=== PATIENT | female | born 1985 | race Caucasian/White ===

== ENCOUNTER 2020-11-26 00:47 | Emergency (ER) | payer MEDICARE, OTHER ==
[2020-11-26 00:58] VITALS: BP 133/62; PULSE 96; RESP 18; TEMP 98.2
[2020-11-26 02:06] LABS: Bacteria,Urine Rare /hpf; Mucus,Urine Rare /hpf; RBC,Urine 1 /hpf (0-5); Squamous Epithelial Cell,Urine 1 /hpf (0-4); WBC,Urine 12 /hpf (0-5)
[2020-11-26 02:08] LABS: Appearance,Urine Clear (Clear); Color,Urine Dark Orange
[2020-11-26 02:09] LABS: Basophils # (A) 0.1 k/uL (0-0.2); Basophils % (A) 1 %; Eosinophils # (A) 0.3 k/uL (0-0.7); Eosinophils % (A) 3 %; Lymphocytes # (A) 3.4 k/uL (1.0-4.8); Lymphocytes % (A) 34 %; MCH 32.1 pg (25.0-35.0); MCHC 34.1 g/dL (31.0-37.0); MCV 94.1 fL (80.0-100.0); Monocytes # (A) 0.6 k/uL (0-1.0); Monocytes % (A) 6 %; Neutrophils # (A) 5.6 k/uL (1.3-7.7); Neutrophils % (A) 56 %; Platelet Count 355 k/uL (150-450); RBC 4.36 m/uL (3.80-5.40); RDW 12.2 % (11.5-15.5); WBC 10.1 k/uL (3.8-10.6)
[2020-11-26 02:16] LABS: ALT 26 U/L (4-34); AST 34 U/L (14-36); African American GFR (CKD) >90 (>60 ml/min/1.73 sqM); Albumin 4.2 g/dL (3.5-5.0); Alkaline Phosphatase 91 U/L (38-126); Amylase 38 U/L (30-110); Anion Gap 11 mmol/L; Blood Urea Nitrogen 13 mg/dL (7-17); Calcium 9.6 mg/dL (8.4-10.2); Carbon Dioxide 25 mmol/L (22-30); Chloride 103 mmol/L (98-107); Glucose 110 mg/dL (74-99); Lipase 63 U/L (23-300); Non-African American GFR(CKD) >90 (>60 ml/min/1.73 sqM); Potassium 4.2 mmol/L (3.5-5.1); Sodium 139 mmol/L (137-145); Total Bilirubin 0.1 mg/dL (0.2-1.3); Total Protein 6.8 g/dL (6.3-8.2)
[2020-11-26] MEDS ORDERED: SULFAMETHOX-TMP 800-160MG 1 EACH TAB PO STA (02:56)
--- NOTE | 2020-11-26 02:58 | ED ---
Abdominal Pain HPI - General Chief Complaint: Abdominal Pain Stated Complaint: Abd Pain Time Seen by Provider: 11/26/20 01:02 Source: patient Mode of arrival: ambulatory Limitations: no limitations - History of Present Illness MD Complaint: abdominal pain Onset/Timin -: days(s) Location: LLQ, RLQ, suprapubic Radiation: none Severity: moderate Quality: burning Consistency: intermittent Improves With: nothing Worsens With: other (Urination) Associated Symptoms: dysuria - Related Data LMP (females 10-50): last week Home Medications Medication Instructions Recorded Confirmed Albuterol Inhaler (Mhu) [Ventolin 2 puff INHALATION Q4HR PRN 10/21/13 10/25/13 Hfa Inhaler (Mhu)] Albuterol Nebulized [Ventolin 1 applic INHALATION Q4-6H PRN 10/21/13 10/25/13 Nebulized] Beclomethasone Dipropionate [Qvar 1 puff INHALATION BID PRN 10/21/13 10/25/13 40 mcg/puff] Cetirizine HCl [Zyrtec Chewable] 10 mg PO DAILY 10/21/13 10/25/13 DULoxetine HCL [Cymbalta] 60 mg PO HS 10/21/13 10/25/13 Dextroamphetamine/Amphetamine 20 mg PO TID 10/21/13 10/25/13 [Adderall] Ibuprofen [Motrin] 600 - 800 mg PO Q6HR PRN 10/21/13 10/25/13 Levothyroxine Sodium [Synthroid] 25 mcg PO DAILY 10/21/13 10/25/13 busPIRone HCL [Buspar] 15 mg PO BID 10/21/13 10/25/13 fentaNYL 25MCG/HR PATCH [Duragesic 25 mcg TRANSDERM Q72H 10/21/13 10/25/13 25MCG/HR] hydrOXYzine pamoate [Vistaril] 25 mg PO Q6H PRN 10/21/13 10/25/13 lamoTRIgine [LaMICtal] 100 mg PO HS 10/21/13 10/25/13 Previous Rx's Medication Instructions Recorded Warfarin [Coumadin] 2.5 mg PO DAILY #60 tab 10/28/13 Nicotine 21Mg/24Hr Patch [Habitrol] 1 patch TRANSDERM DAILY #14 patch 10/29/13 hydrOXYzine pamoate [Vistaril] 25 mg PO Q4HR PRN #120 cap 10/29/13 methocarbamoL [Robaxin] 1,000 mg PO QID PRN #120 tab 10/29/13 oxyCODONE-APAP 10-325MG [Percocet 2 each PO Q6H PRN #120 tab 10/29/13 10-325 mg] Phenazopyridine [Pyridium] 100 mg PO TID #6 tablet 11/26/20 Sulfamethox-Tmp 800-160Mg [Bactrim 1 each PO Q12HR #6 tab 11/26/20 Ds] Allergies Allergy/AdvReac Type Severity Reaction Status Date / Time latex Allergy Rash/Hives Verified 11/26/20 00:56 morphine Allergy Vomiting Verified 11/26/20 00:56 clarithromycin [From Biaxin] AdvReac Abdominal Verified 11/26/20 00:56 Pain Review of Systems ROS Statement: Those systems with pertinent positive or pertinent negative responses have been documented in the HPI. ROS Other: All systems not noted in ROS Statement are negative. Constitutional: Denies: fever, chills Respiratory: Denies: cough, dyspnea Cardiovascular: Denies: chest pain, palpitations, edema Gastrointestinal: Reports: abdominal pain. Denies: nausea, vomiting, diarrhea, constipation Genitourinary: Reports: urgency, dysuria, frequency. Denies: hematuria, discharge, abnormal menses Musculoskeletal: Denies: back pain Skin: Denies: rash Past Medical History Past Medical History: Asthma, Cancer, GERD/Reflux, GI Bleed, Hyperlipidemia, Liver Disease, Musculoskeletal Disorder, Osteoarthritis (OA), Skin Disorder, Syncope Additional Past Medical History / Comment(s): HX SKIN CANCER. 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 HX ORAL SURGERY. STATES HAS HIGH PAIN MED TOLERANCE. Past Anesthesia/Blood Transfusion Reactions: No Reported Reaction Additional Past Anesthesia/Blood Transfusion Reaction / Comment(s): FATHER HAS PROB AWAKENING FROM ANESTHESIA, GETS AGITATED; HE ALSO HAD A FEVER FROM A PAST BLOOD TRANSFUSION. Past Psychological History: Anxiety, Depression Smoking Status: Current every day smoker Past Alcohol Use History: None Reported, Rare Past Drug Use History: None Reported - Past Family History Father Family Medical History: Cancer, Deep Vein Thrombosis (DVT) General Exam Limitations: no limitations General appearance: alert, in no apparent distress Head exam: Present: atraumatic, normocephalic Eye exam: Present: normal appearance. Absent: scleral icterus, conjunctival injection Respiratory exam: Present: normal lung sounds bilaterally. Absent: respiratory distress, wheezes, rales, rhonchi, stridor Cardiovascular Exam: Present: regular rate, normal rhythm, normal heart sounds. Absent: systolic murmur, diastolic murmur, rubs, gallop GI/Abdominal exam: Present: soft, tenderness (Mild tenderness suprapubic area, no rebound or guarding.). Absent: distended, guarding, rebound, rigid, mass, pulsatile mass, hernia Extremities exam: Present: normal inspection, normal capillary refill Back exam: Present: normal inspection. Absent: CVA tenderness (R), CVA t enderness (L) Neurological exam: Present: alert Skin exam: Present: warm, dry, intact, normal color. Absent: rash Course Vital Signs 11/26/20 00:56 Temperature 98.2 F Pulse Rate 96 Respiratory 18 Rate Blood Pressure 133/62 O2 Sat by Pulse 99 Oximetry Medical Decision Making - Medical Decision Making Discussed with patient that if she is not having any relief with treatment, or if there is any worsening, she must return for further evaluation. She is not having improvement within 2 days she is follow with gynecology further evaluation. - Lab Data Result diagrams: 11/26/20 01:22 11/26/20 01:22 Lab Results 11/26/20 11/26/20 11/26/20 Range/Units 01:22 01:22 01:22 WBC 10.1 (3.8-10.6) k/uL RBC 4.36 (3.80-5.40) m/uL Hgb 14.0 (11.4-16.0) gm/dL Hct 41.0 (34.0-46.0) % MCV 94.1 (80.0-100.0) fL MCH 32.1 (25.0-35.0) pg MCHC 34.1 (31.0-37.0) g/dL RDW 12.2 (11.5-15.5) % Plt Count 355 (150-450) k/uL MPV 8.0 Neutrophils % 56 % Lymphocytes % 34 % Monocytes % 6 % Eosinophils % 3 % Basophils % 1 % Neutrophils # 5.6 (1.3-7.7) k/uL Lymphocytes # 3.4 (1.0-4.8) k/uL Monocytes # 0.6 (0-1.0) k/uL Eosinophils # 0.3 (0-0.7) k/uL Basophils # 0.1 (0-0.2) k/uL Sodium (137-145) mmol/L Potassium (3.5-5.1) mmol/L Chloride (98-107) mmol/L Carbon Dioxide (22-30) mmol/L Anion Gap mmol/L BUN (7-17) mg/dL Creatinine (0.52-1.04) mg/dL Est GFR (CKD-EPI)AfAm (>60 ml/min/1.73 sqM) Est GFR (CKD-EPI)NonAf (>60 ml/min/1.73 sqM) Glucose (74-99) mg/dL Calcium (8.4-10.2) mg/dL Total Bilirubin (0.2-1.3) mg/dL AST (14-36) U/L ALT (4-34) U/L Alkaline Phosphatase (38-126) U/L Total Protein (6.3-8.2) g/dL Albumin (3.5-5.0) g/dL Amylase (30-110) U/L Lipase (23-300) U/L Urine Color Dark [place] Urine Appearance Clear (Clear) Urine RBC 1 (0-5) /hpf Urine WBC 12 H (0-5) /hpf Urine WBC Clumps Rare H (None) /hpf Ur Squamous Epith Cells 1 (0-4) /hpf Urine Bacteria Rare H (None) /hpf Urine Mucus Rare H (None) /hpf Urine HCG, Qual Not Detected (Not Detectd) 11/26/20 Range/Units 01:22 WBC (3.8-10.6) k/uL RBC (3.80-5.40) m/uL Hgb (11.4-16.0) gm/dL Hct (34.0-46.0) % MCV (80.0-100.0) fL MCH (25.0-35.0) pg MCHC (31.0-37.0) g/dL RDW (11.5-15.5) % Plt Count (150-450) k/uL MPV Neutrophils % % Lymphocytes % % Monocytes % % Eosinophils % % Basophils % % Neutrophils # (1.3-7.7) k/uL Lymphocytes # (1.0-4.8) k/uL Monocytes # (0-1.0) k/uL Eosinophils # (0-0.7) k/uL Basophils # (0-0.2) k/uL Sodium 139 (137-145) mmol/L Potassium 4.2 (3.5-5.1) mmol/L Chloride 103 (98-107) mmol/L Carbon Dioxide 25 (22-30) mmol/L Anion Gap 11 mmol/L BUN 13 (7-17) mg/dL Creatinine 0.68 (0.52-1.04) mg/dL Est GFR (CKD-EPI)AfAm >90 (>60 ml/min/1.73 sqM) Est GFR (CKD-EPI)NonAf >90 (>60 ml/min/1.73 sqM) Glucose 110 H (74-99) mg/dL Calcium 9.6 (8.4-10.2) mg/dL Total Bilirubin 0.1 L (0.2-1.3) mg/dL AST 34 (14-36) U/L ALT 26 (4-34) U/L Alkaline Phosphatase 91 (38-126) U/L Total Protein 6.8 (6.3-8.2) g/dL Albumin 4.2 (3.5-5.0) g/dL Amylase 38 (30-110) U/L Lipase 63 (23-300) U/L Urine Color Urine Appearance (Clear) Urine RBC (0-5) /hpf Urine WBC (0-5) /hpf Urine WBC Clumps (None) /hpf Ur Squamous Epith Cells (0-4) /hpf Urine Bacteria (None) /hpf Urine Mucus (None) /hpf Urine HCG, Qual (Not Detectd) Disposition Clinical Impression: Urinary tract infection Disposition: HOME SELF-CARE Condition: Good Instructions (If sedation given, give patient instructions): Urinary Tract Infection in Women (ED) Prescriptions: Sulfamethox-Tmp 800-160Mg [Bactrim Ds] 1 each PO Q12HR #6 tab Phenazopyridine [Pyridium] 100 mg PO TID #6 tablet Is patient prescribed a controlled substance at d/c from ED?: No Referrals: None,Stated [Primary Care Provider] - 1-2 days
[2020-11-26] MEDS ORDERED: PHENAZOPYRIDINE 100 MG TAB PO ONE (03:00)
== END 2020-11-26 03:13 | disposition home or self-care (01) ==
LOC: EC 00:47
DX: N39.0 Urinary tract infection, site not specified (principal); F17.200 Nicotine dependence, unspecified, uncomplicated; J45.909 Unspecified asthma, uncomplicated; Z91.040 Latex allergy status; Z88.5 Allergy status to narcotic agent; Z88.8 Allergy status to other drugs, medicaments and biological substances
CPT/HCPCS: 36415; 80053; 81001; 81025; 82150; 83690; 85025; 87086; 99284

== ENCOUNTER → 2022-04-07 | Outpatient (CLI) | payer MEDICARE, OTHER ==
--- NOTE | 2022-04-07 19:18 | US ---
EXAMINATION TYPE: US transvaginal DATE OF EXAM: 04/07/2022 COMPARISON: CT 07/27/2013 CLINICAL HISTORY: N92.0 MENORRHAGIA. Pt states vaginal bleeding x 1 month TECHNIQUE: Transvaginal (TV). Transvaginal sonographic images of the pelvis were acquired. Date of LMP: 03/03/2022 EXAM MEASUREMENTS: Uterus: 6.5 x 4.2 x 4.7 cm Endometrial Stripe: 0.6 cm Right Ovary: 3.3 x 3.2 x 2.1 cm Left Ovary: 3.0 x 2.3 x 1.6 cm 1. Uterus: Retroverted Small Nabothian cyst, otherwise appeared wnl 2. Endometrium: wnl 3. Right Ovary: Dominant follicular Cyst= 2.4 x 1.5 x 2.3 cm 4. Left Ovary: Follicles 5. Bilateral Adnexa: small amount of fluid right adnexa adjacent to right ovary 6. Posterior cul-de-sac: small amount of free fluid IMPRESSION: 1. No acute pelvic process. Normal endometrial thickness. 2. Small amount of free fluid in the pelvic cul-de-sac and right adnexa, likely physiologic.
== END | disposition home or self-care (01) ==
LOC: RADUSWWP 15:28
PROVIDERS: ATTEND Internal Medicine Geriatric Medicine
DX: N92.0 Excessive and frequent menstruation with regular cycle (principal)
CPT/HCPCS: 76830

== ENCOUNTER 2022-05-15 15:28 | Emergency (ER) | payer MEDICARE, OTHER ==
[2022-05-15 15:45] VITALS: TEMP 97.8
[2022-05-15 16:53] LABS: Basophils # (A) 0.1 k/uL (0-0.2); Basophils % (A) 1 %; Eosinophils # (A) 0.4 k/uL (0-0.7); Eosinophils % (A) 4 %; HCT 40.1 % (34.0-46.0); HGB 13.6 gm/dL (11.4-16.0); Lymphocytes # (A) 3.2 k/uL (1.0-4.8); Lymphocytes % (A) 40 %; MCH 31.7 pg (25.0-35.0); MCV 93.4 fL (80.0-100.0); Mean Platelet Volume 7.7; Monocytes # (A) 0.5 k/uL (0-1.0); Monocytes % (A) 7 %; Neutrophils # (A) 3.6 k/uL (1.3-7.7); Neutrophils % (A) 45 %; Platelet Count 296 k/uL (150-450); RBC 4.29 m/uL (3.80-5.40); RDW 12.8 % (11.5-15.5)
[2022-05-15 17:03] LABS: ALT 19 U/L (4-34); AST 25 U/L (14-36); African American GFR (CKD) >90 (>60 ml/min/1.73 sqM); Albumin 4.3 g/dL (3.5-5.0); Alkaline Phosphatase 68 U/L (38-126); Anion Gap 5 mmol/L; Blood Urea Nitrogen 13 mg/dL (7-17); Calcium 9.1 mg/dL (8.4-10.2); Carbon Dioxide 25 mmol/L (22-30); Chloride 107 mmol/L (98-107); Glucose 93 mg/dL (74-99); Magnesium 2.2 mg/dL (1.6-2.3); Non-African American GFR(CKD) >90 (>60 ml/min/1.73 sqM); Potassium 4.2 mmol/L (3.5-5.1); Sodium 137 mmol/L (137-145); Total Bilirubin 0.2 mg/dL (0.2-1.3); Total Protein 6.8 g/dL (6.3-8.2)
[2022-05-15 17:11] LABS: Partial Thromboplastin Time 28.6 sec (22.0-30.0); Prothrombin Time 10.8 sec (9.0-12.0)
--- NOTE | 2022-05-15 17:14 | XR ---
EXAMINATION TYPE: XR chest 2V DATE OF EXAM: 05/15/2022 5:10 PM COMPARISON: None TECHNIQUE: XR chest 2V Frontal and lateral views of the chest. CLINICAL INDICATION:Female, 37 years old with history of Chest Pain; FINDINGS: Lungs/Pleura: There is no evidence of pleural effusion, focal consolidation, or pneumothorax. Pulmonary vascularity: Unremarkable. Heart/mediastinum: Cardiomediastinal silhouette is unremarkable. Musculoskeletal: No acute osseous pathology. IMPRESSION: No acute cardiopulmonary disease/process.
[2022-05-15 18:12] VITALS: RESP 18
--- NOTE | 2022-05-15 18:37 | ED ---
General Adult HPI - General Chief complaint: Chest Pain Stated complaint: Chest Pain,SOB Time Seen by Provider: 05/15/22 17:50 Source: patient Mode of arrival: ambulatory Limitations: no limitations - History of Present Illness Initial comments: Dictation was produced using [employer] dictation software. please excuse any grammatical, word or spelling errors. Chief Complaint: 37-year-old female presents emergency Department with episode of chest pain History of Present Illness: Is a 37-year-old female she presents emergency department for chest pain. Patient had sharp chest pain to her left anterior chest radiated to her left lateral thorax. Patient states symptoms lasted for approximately 2-3 hours. I worse with deep inspiration. Patient states that her symptoms are resolved. She has no history of cardiac disease. No shortness of breath. She felt like she was spasmed in the left chest. The ROS documented in this emergency department record has been reviewed and confirmed by me. Those systems with pertinent positive or negative responses have been documented in the HPI. All other systems are other negative and/or noncontributory. PHYSICAL EXAM: General Impression: Alert and oriented x3, not in acute distress HEENT: Normocephalic atraumatic, extra-ocular movements intact, pupils equal and reactive to light bilaterally, mucous membranes moist. Cardiovascular: Heart regular rate and rhythm Chest: Able to complete full sentences, no retractions, no tachypnea Abdomen: abdomen soft, non-tender, non-distended, no organomegaly Musculoskeletal: Pulses present and equal in all extremities, no peripheral edema Motor: no focal deficits noted Neurological: CN II-XII grossly intact, no focal motor or sensory deficits noted Skin: Intact with no visualized rashes Psych: Normal affect and mood ED course: 37-year-old well-appearing female presents emergency department for atypical chest pain. Patient is a symptomatically at bedside. She has no risk factors. Vital signs upon arrival are within acceptable limits. Laboratory evaluation unremarkable. CBC, coag panel normal, metabolic panel is unremarkabl e. Troponin is negative. Chest x-ray is nonacute. Patient will be discharged. Nursing notes and chart review was performed EKG interpreted by me: Ventricular rate 94, sinus rhythm,. 152, QRS 66, QTC 380. No [place] prolongation, no QTC prolongation, no ST or T-wave changes noted. Overall, this EKG is unremarkable Was pt. sent in by a medical professional or institution ([employer] Light, DATA PROCESSING CONTROL CLERK, urgent care, hospital, or skilled nursing...) When possible be specific @ -No Did you speak to anyone other than the patient for history (EMS, parent, family, police, friend...)? What history was obtained from this source @ -No Did you review nursing and triage notes (agree or disagree)? Why? @ -I reviewed and agree with nursing and triage notes Were old charts reviewed (outside hosp., previous admission, EMS record, old EKG, old radiological studies, urgent care reports/EKG's, skilled nursing records)? Report findings @ -No old charts were reviewed Differential Diagnosis (chest pain, altered mental status, abdominal pain women, abdominal pain men, vaginal bleeding, weakness, fever, dyspnea, syncope, headache, dizziness, GI bleed, back pain, seizure, CVA, palpatations, mental health)? @ -Differential Chest Pain: Stable Angina, Unstable Angina, STEMI, NSTEMI Aortic Dissection, Pneumothorax, Musculoskeletal, Esophageal Spasm GERD, Cholecystitis, Pancreatitis, Zoster, this is not meant to be an all-inclusive list. EKG interpreted by me (3pts min.). @ -As above X-rays interpreted by me (1pt min.). @ -As above CT interpreted by me (1pt min.). @ -None done U/S interpreted by me (1pt. min.). @ -None done What testing was considered but not performed or refused? (CT, X-rays, U/S, labs)? Why? @ -None What meds were considered but not given or refused? Why? @ -None Did you discuss the management of the patient with other professionals (anali eckert i.e. [employer], DATA PROCESSING CONTROL CLERK, lab, RT, psych nurse, psychosocial rehabilitation counselor, inspector and tester, teacher, loss prevention officer, disease case manager rn)? Give summary @ -No Was smoking cessation discussed for >3mins.? @ -No Was critical care preformed (if so, how long)? @ -No Were there social determinants of health that impacted care today? How? (Homelessness, low income, unemployed, alcoholism, drug addiction, transportatio n, low edu. Level, literacy, decrease access to med. care, fpc, rehab)? @ -No Was there de-escalation of care discussed even if they declined (Discuss DNR or withdrawal of care, Hospice)? DNR status @ -No What co-morbidities impacted this encounter? (DM, HTN, Smoking, COPD, CAD, Cancer, CVA, ARF, Chemo, Hep., AIDS, mental health diagnosis, sleep apnea, morbid obesity)? @ -None Was patient admitted / discharged? Hospital course, mention meds given and route, prescriptions, significant lab abnormalities, going to OR and other pertinent info. @ -See above Undiagnosed new problem with uncertain prognosis? @ -No Drug Therapy requiring intensive monitoring for toxicity (Heparin, Nitro, Insulin, Cardizem)? @ -No Were any procedures done? @ -No Diagnosis/symptom? @ -Atypical chest pain, chest strain Acute, or Chronic, or Acute on Chronic? @ -Acute Uncomplicated (without systemic symptoms) or Complicated (systemic symptoms)? @ -default Side effects of treatment? @ -No Exacerbation, Progression, or Severe Exacerbation? @ -No Poses a threat to life or bodily function? How? (Chest pain, [place], [place], pneumonia, PE, COPD, DKA, ARF, appy, cholecystitis, CVA, Diverticulitis, Homicidal, Suicidal, threat to staff... and all critical care pts) @ -No - Related Data Home Medications Medication Instructions Recorded Confirmed Albuterol Inhaler [Ventolin Hfa 2 puff INHALATION Q4HR PRN 10/21/13 10/25/13 Inhaler] Albuterol Nebulized [Ventolin 1 applic INHALATION Q4-6H PRN 10/21/13 10/25/13 Nebulized] Beclomethasone Dipropionate [Qvar 1 puff INHALATION BID PRN 10/21/13 10/25/13 40 mcg/puff] Cetirizine HCl [Zyrtec Chewable] 10 mg PO DAILY 10/21/13 10/25/13 DULoxetine HCL [Cymbalta] 60 mg PO HS 10/21/13 10/25/13 Dextroamphetamine/Amphetamine 20 mg PO TID 10/21/13 10/25/13 [Adderall] Ibuprofen [Motrin] 600 - 800 mg PO Q6HR PRN 10/21/13 10/25/13 Levothyroxine Sodium [Synthroid] 25 mcg PO DAILY 10/21/13 10/25/13 busPIRone HCL [Buspar] 15 mg PO BID 10/21/13 10/25/13 fentaNYL 25MCG/HR PATCH [Duragesic 25 mcg TRANSDERM Q72H 10/21/13 10/25/13 25MCG/HR] hydrOXYzine pamoate [Vistaril] 25 mg PO Q6H PRN 10/21/13 10/25/13 lamoTRIgine [LaMICtal] 100 mg PO HS 10/21/13 10/25/13 Previous Rx's Medication Instructions Recorded Warfarin [Coumadin] 2.5 mg PO DAILY #60 tab 10/28/13 Nicotine 21Mg/24Hr Patch [Habitrol] 1 patch TRANSDERM DAILY #14 patch 10/29/13 hydrOXYzine pamoate [Vistaril] 25 mg PO Q4HR PRN #120 cap 10/29/13 methocarbamoL [Robaxin] 1,000 mg PO QID PRN #120 tab 10/29/13 oxyCODONE-APAP 10-325MG [Percocet 2 each PO Q6H PRN #120 tab 10/29/13 10-325 mg] Phenazopyridine [Pyridium] 100 mg PO TID #6 tablet 11/26/20 Sulfamethox-Tmp 800-160Mg [Bactrim 1 each PO Q12HR #6 tab 11/26/20 Ds] Allergies Allergy/AdvReac Type Severity Reaction Status Date / Time latex Allergy Rash/Hives Verified 05/15/22 15:45 morphine Allergy Vomiting Verified 05/15/22 15:45 clarithromycin [From Biaxin] AdvReac Abdominal Verified 05/15/22 15:45 Pain Review of Systems ROS Statement: Those systems with pertinent positive or pertinent negative responses have been documented in the HPI. ROS Other: All systems not noted in ROS Statement are negative. Past Medical History Past Medical History: Asthma, Cancer, GERD/Reflux, GI Bleed, Hyperlipidemia, Liver Disease, Musculoskeletal Disorder, Osteoarthritis (OA), Skin Disorder, Syncope Additional Past Medical History / Comment(s): HX SKIN CANCER. 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 HX ORAL SURGERY. STATES HAS HIGH PAIN MED TOLERANCE. Past Anesthesia/Blood Transfusion Reactions: No Reported Reaction Additional Past Anesthesia/Blood Transfusion Reaction / Comment(s): FATHER HAS PROB AWAKENING FROM ANESTHESIA, GETS AGITATED; HE ALSO HAD A FEVER FROM A PAST BLOOD TRANSFUSION. Past Psychological History: Anxiety, Depression Smoking Status: Current every day smoker Past Alcohol Use History: Rare Past Drug Use History: Marijuana - Past Family History Father Family Medical History: Cancer, Deep Vein Thrombosis (DVT) General Exam Limitations: no limitations Course Vital Signs 05/15/22 05/15/22 15:42 18:11 Temperature 97.8 F Pulse Rate 103 H Respiratory 20 18 Rate Blood Pressure 126/79 114/62 O2 Sat by Pulse 100 98 Oximetry Medical Decision Making - Lab Data Result diagrams: 05/15/22 16:30 05/15/22 16:30 Lab Results 05/15/22 05/15/22 05/15/22 Range/Units 16:30 16:30 16:30 WBC 8.0 (3.8-10.6) k/uL RBC 4.29 (3.80-5.40) m/uL Hgb 13.6 (11.4-16.0) gm/dL Hct 40.1 (34.0-46.0) % MCV 93.4 (80.0-100.0) fL MCH 31.7 (25.0-35.0) pg MCHC 34.0 (31.0-37.0) g/dL RDW 12.8 (11.5-15.5) % Plt Count 296 (150-450) k/uL MPV 7.7 Neutrophils % 45 % Lymphocytes % 40 % Monocytes % 7 % Eosinophils % 4 % Basophils % 1 % Neutrophils # 3.6 (1.3-7.7) k/uL Lymphocytes # 3.2 (1.0-4.8) k/uL Monocytes # 0.5 (0-1.0) k/uL Eosinophils # 0.4 (0-0.7) k/uL Basophils # 0.1 (0-0.2) k/uL PT 10.8 (9.0-12.0) sec INR 1.0 (<1.2) APTT 28.6 (22.0-30.0) sec Sodium 137 (137-145) mmol/L Potassium 4.2 (3.5-5.1) mmol/L Chloride 107 (98-107) mmol/L Carbon Dioxide 25 (22-30) mmol/L Anion Gap 5 mmol/L BUN 13 (7-17) mg/dL Creatinine 0.76 (0.52-1.04) mg/dL Est GFR (CKD-EPI)AfAm >90 (>60 ml/min/1.73 sqM) Est GFR (CKD-EPI)NonAf >90 (>60 ml/min/1.73 sqM) Glucose 93 (74-99) mg/dL Calcium 9.1 (8.4-10.2) mg/dL Magnesium 2.2 (1.6-2.3) mg/dL Total Bilirubin 0.2 (0.2-1.3) mg/dL AST 25 (14-36) U/L ALT 19 (4-34) U/L Alkaline Phosphatase 68 (38-126) U/L Troponin I (0.000-0.034) ng/mL Total Protein 6.8 (6.3-8.2) g/dL Albumin 4.3 (3.5-5.0) g/dL 05/15/22 Range/Units 16:30 WBC (3.8-10.6) k/uL RBC (3.80-5.40) m/uL Hgb (11.4-16.0) gm/dL Hct (34.0-46.0) % MCV (80.0-100.0) fL MCH (25.0-35.0) pg MCHC (31.0-37.0) g/dL RDW (11.5-15.5) % Plt Count (150-450) k/uL MPV Neutrophils % % Lymphocytes % % Monocytes % % Eosinophils % % Basophils % % Neutrophils # (1.3-7.7) k/uL Lymphocytes # (1.0-4.8) k/uL Monocytes # (0-1.0) k/uL Eosinophils # (0-0.7) k/uL Basophils # (0-0.2) k/uL PT (9.0-12.0) sec INR (<1.2) APTT (22.0-30.0) sec Sodium (137-145) mmol/L Potassium (3.5-5.1) mmol/L Chloride (98-107) mmol/L Carbon Dioxide (22-30) mmol/L Anion Gap mmol/L BUN (7-17) mg/dL Creatinine (0.52-1.04) mg/dL Est GFR (CKD-EPI)AfAm (>60 ml/min/1.73 sqM) Est GFR (CKD-EPI)NonAf (>60 ml/min/1.73 sqM) Glucose (74-99) mg/dL Calcium (8.4-10.2) mg/dL Magnesium (1.6-2.3) mg/dL Total Bilirubin (0.2-1.3) mg/dL AST (14-36) U/L ALT (4-34) U/L Alkaline Phosphatase (38-126) U/L Troponin I <0.012 (0.000-0.034) ng/mL Total Protein (6.3-8.2) g/dL Albumin (3.5-5.0) g/dL Disposition Clinical Impression: Strain of chest wall Disposition: HOME SELF-CARE Condition: Good Instructions (If sedation given, give patient instructions): Costochondritis (ED) Is patient prescribed a controlled substance at d/c from ED?: No Referrals: Carol Brown MD [Primary Care Provider] - 1-2 days Time of Disposition: 18:37
[2022-05-15 19:07] VITALS: BP 110/60; PULSE 80
== END 2022-05-15 19:07 | disposition home or self-care (01) ==
LOC: EC 15:28
DX: S29.011A Strain of muscle and tendon of front wall of thorax, initial encounter (principal); I21.4 Non-ST elevation (NSTEMI) myocardial infarction; K76.0 Fatty (change of) liver, not elsewhere classified; I20.0 Unstable angina; J45.909 Unspecified asthma, uncomplicated; M19.90 Unspecified osteoarthritis, unspecified site; F41.9 Anxiety disorder, unspecified; F32.A Depression, unspecified; F17.200 Nicotine dependence, unspecified, uncomplicated; F12.90 Cannabis use, unspecified, uncomplicated; Z79.899 Other long term (current) drug therapy; Z91.040 Latex allergy status; Z88.5 Allergy status to narcotic agent; Z88.1 Allergy status to other antibiotic agents; Z79.1 Long term (current) use of non-steroidal anti-inflammatories (NSAID); X58.XXXA Exposure to other specified factors, initial encounter
CPT/HCPCS: 36415; 71046; 80053; 83735; 84484; 85025; 85610; 85730; 93005; 99285

== ENCOUNTER 2023-05-19 10:11 | Emergency (ER) | payer MEDICARE, OTHER ==
--- NOTE | 2023-05-19 10:39 | ED ---
General Adult HPI - General Source: patient, RN notes reviewed Mode of arrival: ambulatory Limitations: no limitations <Yvonne Santo - Last Filed: 05/19/23 10:39> - General Source: patient, RN notes reviewed Mode of arrival: ambulatory Limitations: no limitations <Corine Pal - Last Filed: 05/22/23 13:34> - General Chief complaint: Abdominal Pain Stated complaint: abd pain Time Seen by Provider: 05/19/23 10:38 - History of Present Illness Initial comments: 38 year old female presents to the emergency department for evaluation of upper abdominal pain x1 day. She denies nausea, vomiting. Denies fever. Admits to possible constipation. (Yvonne Santo) This is a 38 year old female who presents to the emergency department for upper abdominal pain. States that this began 1 day ago. This is in the center and left side of the abdomen. She does have nausea but no vomiting. Denies any fevers or chills. Also denies any urinary symptoms. Believes that she has been constipated. She is on Suboxone, and states that this tends to make her constipated. She is taking Senna and Dulcolax daily and using MiraLAX as needed. She also drank a bottle of magnesium citrate this morning with no relief. (Corine Pal) - Related Data Home Medications Medication Instructions Recorded Confirmed Albuterol Inhaler [Ventolin Hfa 2 puff INHALATION Q4HR PRN 10/21/13 10/25/13 Inhaler] Albuterol Nebulized [Ventolin 1 applic INHALATION Q4-6H PRN 10/21/13 10/25/13 Nebulized] Beclomethasone Dipropionate [Qvar 1 puff INHALATION BID PRN 10/21/13 10/25/13 40 mcg/puff] Cetirizine HCl [Zyrtec Chewable] 10 mg PO DAILY 10/21/13 10/25/13 DULoxetine HCL [Cymbalta] 60 mg PO HS 10/21/13 10/25/13 Dextroamphetamine/Amphetamine 20 mg PO TID 10/21/13 10/25/13 [Adderall] Ibuprofen [Motrin] 600 - 800 mg PO Q6HR PRN 10/21/13 10/25/13 Levothyroxine Sodium [Synthroid] 25 mcg PO DAILY 10/21/13 10/25/13 busPIRone HCL [Buspar] 15 mg PO BID 10/21/13 10/25/13 fentaNYL 25MCG/HR PATCH [Duragesic 25 mcg TRANSDERM Q72H 10/21/13 10/25/13 25MCG/HR] hydrOXYzine pamoate [Vistaril] 25 mg PO Q6H PRN 10/21/13 10/25/13 lamoTRIgine [LaMICtal] 100 mg PO HS 10/21/13 10/25/13 Previous Rx's Medication Instructions Recorded Warfarin [Coumadin] 2.5 mg PO DAILY #60 tab 10/28/13 Nicotine 21Mg/24Hr Patch [Habitrol] 1 patch TRANSDERM DAILY #14 patch 10/29/13 hydrOXYzine pamoate [Vistaril] 25 mg PO Q4HR PRN #120 cap 10/29/13 methocarbamoL [Robaxin] 1,000 mg PO QID PRN #120 tab 10/29/13 oxyCODONE-APAP 10-325MG [Percocet 2 each PO Q6H PRN #120 tab 10/29/13 10-325 mg] Phenazopyridine [Pyridium] 100 mg PO TID #6 tablet 11/26/20 Sulfamethox-Tmp 800-160Mg [Bactrim 1 each PO Q12HR #6 tab 11/26/20 Ds] Ketorolac [Toradol] 10 mg PO Q6HR PRN #15 tab 05/19/23 Ondansetron Odt [Zofran Odt] 4 mg PO Q8HR PRN #20 tab 05/19/23 Allergies Allergy/AdvReac Type Severity Reaction Status Date / Time latex Allergy Rash/Hives Verified 05/19/23 10:29 morphine Allergy Vomiting Verified 05/19/23 10:29 clarithromycin [From Biaxin] AdvReac Abdominal Verified 05/19/23 10:29 Pain Review of Systems ROS Other: All systems not noted in ROS Statement are negative. <Yvonne Santo - Last Filed: 05/19/23 10:39> ROS Other: All systems not noted in ROS Statement are negative. <Corine Pal - Last Filed: 05/22/23 13:34> ROS Statement: Those systems with pertinent positive or pertinent negative responses have been documented in the HPI. Past Medical History Past Medical History: Asthma, Cancer, GERD/Reflux, GI Bleed, Hyperlipidemia, Liver Disease, Musculoskeletal Disorder, Osteoarthritis (OA), Skin Disorder, Syncope Additional Past Medical History / Comment(s): HX SKIN CANCER. 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 HX ORAL SURGERY. STATES HAS HIGH PAIN MED TOLERANCE. Past Anesthesia/Blood Transfusion Reactions: No Reported Reaction Additional Past Anesthesia/Blood Transfusion Reaction / Comment(s): FATHER HAS PROB AWAKENING FROM ANESTHESIA, GETS AGITATED; HE ALSO HAD A FEVER FROM A PAST BLOOD TRANSFUSION. Past Psychological History: Anxiety, Depression Smoking Status: Current every day smoker Past Alcohol Use History: Rare Past Drug Use History: Marijuana - Past Family History Father Family Medical History: Cancer, Deep Vein Thrombosis (DVT) <Yvonne Santo - Last Filed: 05/19/23 10:39> General Exam Limitations: no limitations <Yvonne Santo - Last Filed: 05/19/23 10:39> Limitations: no limitations General appearance: alert, in distress Head exam: Present: atraumatic, normocephalic, normal inspection Respiratory exam: Present: normal lung sounds bilaterally. Absent: respiratory distress, wheezes, rales, rhonchi, stridor Cardiovascular Exam: Present: regular rate, normal rhythm, normal heart sounds. Absent: systolic murmur, diastolic murmur, rubs, gallop, clicks GI/Abdominal exam: Present: soft, tenderness (epigastric), normal bowel sounds. Absent: distended Neurological exam: Present: alert, oriented X3, CN II-XII intact Psychiatric exam: Present: normal affect, normal mood Skin exam: Present: warm, dry, intact, normal color. Absent: rash <Corine Pal - Last Filed: 05/22/23 13:34> - General Exam Comments Initial Comments: Visual Physical Exam Vital signs reviewed General: Well-appearing, nontoxic, no acute distress. Head: Normocephalic, atraumatic Eyes: PERRLA, EOMI ENT: Airway patent Chest: Nonlabored breathing Skin: No visual rash, normal skin tone Neuro: Alert and oriented 3 Musculoskeletal: No gross abnormalities (Yvonne Santo) Course Vital Signs 05/19/23 05/19/23 05/19/23 10:27 11:43 13:01 Temperature 98.1 F 98.3 F 98 F Pulse Rate 73 94 100 Respiratory 20 16 16 Rate Blood Pressure 110/71 95/47 105/60 O2 Sat by Pulse 99 97 99 Oximetry Medical Decision Making <Yvonne Santo - Last Filed: 05/19/23 10:39> - Lab Data Result diagrams: 05/19/23 10:32 05/19/23 10:32 - Radiology Data Radiology results: report reviewed, image reviewed <Corine Pal - Last Filed: 05/22/23 13:34> - Medical Decision Making Quick note preformed by Yvonne Santo PA-C (Yvonne Santo) This is a 38 year old female who presents to the emergency department for abdominal pain. Was pt. sent in by a medical professional or institution? @ -No Did you speak to anyone other than the patient for history? @ -No Did you review nursing and triage notes? @ -Yes, and I agree, it is accurate with regards to the patient's symptoms. Were old charts reviewed? @ -No Differential Diagnosis? @ -Differential Abdominal Pain Women: Appendicitis, Cholecystitis, diverticulosis, ischemic bowel, pancreatitis, hepatitis, UTI, gastroenteritis, AAA, incarcerated hernia, bowel obstruction, constipation, inflammatory bowel, hepatitis, peptic ulcer disease, splenic infarction, perforated viscus, vulvitis, ovarian torsion, PID, kidney stone, placenta abruption, this is not meant to be an all-inclusive list EKG interpreted by me (3pts min.)? @ -Not obtained X-rays interpreted by me (1pt min.)? @ -Not obtained CT interpreted by me (1pt min.)? @ -CT scan of the abdomen and pelvis obtained. My interpretation identifies fluid-filled small bowel loops. U/S interpreted by me (1pt. min.)? @ -Not obtained What testing was considered but not performed? (CT, X-rays, U/S, labs)? Why? @ -None What meds were considered but not given? Why? @ -None Did you discuss the management of the patient with other professionals? @ -No Did you reconcile home meds? @ -No Was smoking cessation discussed for >3mins.? @ -I discussed smoking cessation for greater than 3 minutes. The risk of s moking were discussed with the patient including but not limited to risks of cancer, stroke, coronary artery disease and COPD. Also discussed with patient were multiple methods of quitting smoking. Lastly we discussed the financial cost of smoking. Was critical care preformed (if so, how long)? @ -No Were there social determinants of health that impacted care today? How? (Homelessness, low income, unemployed, alcoholism, drug addiction, t ransportation, low edu. Level, literacy, decrease access to med. care, senior care, rehab)? @ -No Was there de-escalation of care discussed even if they declined? (Discuss DNR or withdrawal of care, Hospice)? @ -No What co-morbidities impacted this encounter? (DM, HTN, Smoking, COPD, CAD, Cancer, CVA, Hep., AIDS, mental health diagnosis, sleep apnea, morbid obesity)? @ -GERD, liver disease, smoking Was patient admitted / discharged? @ -Discharged. Lab work obtained and found to be unremarkable. Computed tomography scan of the abdomen and pelvis obtained demonstrating fluid-filled small bowel loops throughout the abdomen and pelvis with additional liquid stool in the right hemicolon as well as mild to moderate stool on the left side of the colon. There were no surrounding inflammatory changes or bowel loop dilation. Findings were suggestive of a nonspecific enteritis. There is no evidence of bowel obstruction at this time. This may be related to the patient's excessive laxative use as well as opioid-induced constipation. She was counseled on limiting the excessive laxative use. Advised that MiraLAX can be taken daily however the laxatives should only be taken as needed. Discussed the option of mineral oil as alternative option for temporary relief, however she was also instructed to avoid regular use of this. Additionally, advised Gas-X or other anti-gas medication due to the likelihood of gas buildup with stool softeners. She was also advised that stool softeners in general may increase her abdominal pain. Recommended she discuss the possibility of specific medications for opioid-induced constipation with her primary care provider. Her pain and nausea were well controlled in the emergency department and she was discharged home in stable condition. Prescription for Toradol and Zofran provided with dosing instructions reviewed. Undiagnosed new problem with uncertain prognosis? @ -None Drug Therapy requiring intensive monitoring for toxicity (Heparin, Nitro, Insulin, Cardizem)? @ -None Were any procedures done? @ -None Diagnosis/symptom? @ -Abdominal pain, nausea Acute, or Chronic, or Acute on Chronic? @ -Acute Uncomplicated (without systemic symptoms) or Complicated (systemic symptoms)? @ -Uncomplicated Side effects of treatment? @ -None Exacerbation, Progression, or Severe Exacerbation] @ -Not applicable Poses a threat to life or bodily function? @ -No Diagnosis/symptom? @ -Opioid induced constipation Acute, or Chronic, or Acute on Chronic? @ -Chronic Uncomplicated (without systemic symptoms) or Complicated (systemic symptoms)? @ -Uncomplicated Side effects of treatment? @ -None Exacerbation, Progression, or Severe Exacerbation] @ -Stable Poses a threat to life or bodily function? @ -No Return precautions reviewed in depth, the patient is instructed to return to the emergency department with any new, worsening, or concerning symptoms. Patient verbalized understanding. This case was discussed in detail with the attending ED physician, Dr. Luke. Presentation, findings, and treatment plan discussed in detail as well. (Corine Pal) - Lab Data Lab Results 05/19/23 05/19/23 05/19/23 Range/Units 10:32 10:32 10:32 WBC 9.0 (3.8-10.6) k/uL RBC 4.35 (3.80-5.40) m/uL Hgb 13.9 (11.4-16.0) gm/dL Hct 40.5 (34.0-46.0) % MCV 93.1 (80.0-100.0) fL MCH 31.9 (25.0-35.0) pg MCHC 34.3 (31.0-37.0) g/dL RDW 11.9 (11.5-15.5) % Plt Count 343 (150-450) k/uL MPV 7.1 Neutrophils % 72 % Lymphocytes % 18 % Monocytes % 5 % Eosinophils % 4 % Basophils % 0 % Neutrophils # 6.5 (1.3-7.7) k/uL Lymphocytes # 1.6 (1.0-4.8) k/uL Monocytes # 0.4 (0-1.0) k/uL Eosinophils # 0.4 (0-0.7) k/uL Basophils # 0.0 (0-0.2) k/uL Sodium 137 (137-145) mmol/L Potassium 4.5 (3.5-5.1) mmol/L Chloride 103 (98-107) mmol/L Carbon Dioxide 28 (22-30) mmol/L Anion Gap 6 mmol/L BUN 15 (7-17) mg/dL Creatinine 0.68 (0.52-1.04) mg/dL Est GFR (CKD-EPI)AfAm >90 (>60 ml/min/1.73 sqM) Est GFR (CKD-EPI)NonAf >90 (>60 ml/min/1.73 sqM) Glucose 147 H (74-99) mg/dL Plasma Lactic Acid Carlos (0.7-2.0) mmol/L Calcium 9.7 (8.4-10.2) mg/dL Total Bilirubin 0.3 (0.2-1.3) mg/dL AST 34 (14-36) U/L ALT 26 (4-34) U/L Alkaline Phosphatase 92 (38-126) U/L Total Protein 7.7 (6.3-8.2) g/dL Albumin 4.6 (3.5-5.0) g/dL Amylase 55 (30-110) U/L Lipase 54 (23-300) U/L HCG, Qual Not Detected Urine Color Yellow Urine Appearance Cloudy H (Clear) Urine pH 8.5 H (5.0-8.0) Ur Specific [place] 1.025 (1.001-1.035) Urine Protein Trace H (Negative) Urine Glucose (UA) Negative (Negative) Urine Ketones Negative (Negative) Urine Blood Negative (Negative) Urine Nitrite Negative (Negative) Urine Bilirubin Negative (Negative) Urine Urobilinogen <2.0 (<2.0) mg/dL Ur Leukocyte Esterase Negative (Negative) Urine RBC 2 (0-5) /hpf Urine WBC 4 (0-5) /hpf Ur Squamous Epith Cells 1 (0-4) /hpf Urine Bacteria Occasional H (None) /hpf Urine Mucus Few H (None) /hpf Urine Yeast (Budding) Many H (None) /hpf 05/19/23 Range/Units 10:32 WBC (3.8-10.6) k/uL RBC (3.80-5.40) m/uL Hgb (11.4-16.0) gm/dL Hct (34.0-46.0) % MCV (80.0-100.0) fL MCH (25.0-35.0) pg MCHC (31.0-37.0) g/dL RDW (11.5-15.5) % Plt Count (150-450) k/uL MPV Neutrophils % % Lymphocytes % % Monocytes % % Eosinophils % % Basophils % % Neutrophils # (1.3-7.7) k/uL Lymphocytes # (1.0-4.8) k/uL Monocytes # (0-1.0) k/uL Eosinophils # (0-0.7) k/uL Basophils # (0-0.2) k/uL Sodium (137-145) mmol/L Potassium (3.5-5.1) mmol/L Chloride (98-107) mmol/L Carbon Dioxide (22-30) mmol/L Anion Gap mmol/L BUN (7-17) mg/dL Creatinine (0.52-1.04) mg/dL Est GFR (CKD-EPI)AfAm (>60 ml/min/1.73 sqM) Est GFR (CKD-EPI)NonAf (>60 ml/min/1.73 sqM) Glucose (74-99) mg/dL Plasma Lactic Acid Carlos 1.0 (0.7-2.0) mmol/L Calcium (8.4-10.2) mg/dL Total Bilirubin (0.2-1.3) mg/dL AST (14-36) U/L ALT (4-34) U/L Alkaline Phosphatase (38-126) U/L Total Protein (6.3-8.2) g/dL Albumin (3.5-5.0) g/dL Amylase (30-110) U/L Lipase (23-300) U/L HCG, Qual Urine Color Urine Appearance (Clear) Urine pH (5.0-8.0) Ur Specific [place] (1.001-1.035) Urine Protein (Negative) Urine Glucose (UA) (Negative) Urine Ketones (Negative) Urine Blood (Negative) Urine Nitrite (Negative) Urine Bilirubin (Negative) Urine Urobilinogen (<2.0) mg/dL Ur Leukocyte Esterase (Negative) Urine RBC (0-5) /hpf Urine WBC (0-5) /hpf Ur Squamous Epith Cells (0-4) /hpf Urine Bacteria (None) /hpf Urine Mucus (None) /hpf Urine Yeast (Budding) (None) /hpf Disposition <Yvonne Santo - Last Filed: 05/19/23 10:39> Is patient prescribed a controlled substance at d/c from ED?: No Time of Disposition: 14:00 <Corine Pal - Last Filed: 05/22/23 13:34> Clinical Impression: Constipation, Abdominal pain, Nicotine dependence Disposition: HOME SELF-CARE Instructions (If sedation given, give patient instructions): Constipation (ED), High Fiber Diet (ED), Abdominal Pain (ED) Additional Instructions: Return to the emergency department with any new, worsening, or concerning symptoms. Discuss prescription medications for opioid induced constipation with your primary care provider. These may require preauthorization by your insurance company. You can try drinking mineral oil or using it in laxative form as another option. Try taking the MiraLAX daily and limiting the use of Dulcolax and Senna, which can be habit forming. You may also need to take anti gas medication with stool softeners. Make sure you also increase your fluid intake. Take the Toradol with Tylenol as needed for pain relief. If you choose to take the Toradol, do not take any other anti-inflammatories such as ibuprofen, take one or the other. Take the Zofran up to every 8 hours as needed for nausea and vomiting. Prescriptions: Ketorolac [Toradol] 10 mg PO Q6HR PRN #15 tab PRN Reason: Pain Ondansetron Odt [Zofran Odt] 4 mg PO Q8HR PRN #20 tab PRN Reason: Nausea And Vomiting Referrals: Carol Brown MD [Primary Care Provider] - 1-2 days
[2023-05-19] MEDS ORDERED: KETOROLAC 15 MG/ML 1 ML VIAL IVP STA ×2 (11:08→13:41)
[2023-05-19] MEDS ORDERED: SODIUM CHLORIDE 0.9% 1,000 ML IV STA (11:08)
[2023-05-19] MEDS ORDERED: ONDANSETRON 4 MG/2 ML VIAL IVP STA (11:08)
[2023-05-19] MEDS ORDERED: HYDROmorphone 0.5 MG/0.5 ML SYRINGE IVP STA ×2 (11:09→13:41)
[2023-05-19 11:49] LABS: Basophils % (A) 0 %; Eosinophils # (A) 0.4 k/uL (0-0.7); Eosinophils % (A) 4 %; HCT 40.5 % (34.0-46.0); HGB 13.9 gm/dL (11.4-16.0); Lymphocytes # (A) 1.6 k/uL (1.0-4.8); Lymphocytes % (A) 18 %; MCH 31.9 pg (25.0-35.0); MCHC 34.3 g/dL (31.0-37.0); MCV 93.1 fL (80.0-100.0); Mean Platelet Volume 7.1; Monocytes # (A) 0.4 k/uL (0-1.0); Monocytes % (A) 5 %; Neutrophils # (A) 6.5 k/uL (1.3-7.7); Neutrophils % (A) 72 %; Platelet Count 343 k/uL (150-450); RBC 4.35 m/uL (3.80-5.40); RDW 11.9 % (11.5-15.5)
[2023-05-19 11:51] VITALS: RESP 16
[2023-05-19 12:05] LABS: ALT 26 U/L (4-34); AST 34 U/L (14-36); African American GFR (CKD) >90 (>60 ml/min/1.73 sqM); Albumin 4.6 g/dL (3.5-5.0); Alkaline Phosphatase 92 U/L (38-126); Amylase 55 U/L (30-110); Anion Gap 6 mmol/L; Blood Urea Nitrogen 15 mg/dL (7-17); Calcium 9.7 mg/dL (8.4-10.2); Carbon Dioxide 28 mmol/L (22-30); Chloride 103 mmol/L (98-107); Glucose 147 mg/dL (74-99); Lipase 54 U/L (23-300); Non-African American GFR(CKD) >90 (>60 ml/min/1.73 sqM); Potassium 4.5 mmol/L (3.5-5.1); Sodium 137 mmol/L (137-145); Total Bilirubin 0.3 mg/dL (0.2-1.3); Total Protein 7.7 g/dL (6.3-8.2)
[2023-05-19 12:07] LABS: HCG,Qualitative Serum Not Detected
[2023-05-19 12:13] LABS: Appearance,Urine Cloudy (Clear); Bacteria,Urine Occasional /hpf; Bilirubin,Urine Negative (Negative); Blood,Urine Negative (Negative); Budding Yeast,Urine Many /hpf; Color,Urine Yellow; Glucose,Urine (UA) Negative (Negative); Ketones,Urine Negative (Negative); Leukocyte Esterase,Urine Negative (Negative); Mucus,Urine Few /hpf; Nitrite,Urine Negative (Negative); PH, Urine 8.5 (5.0-8.0); Protein,Urine Trace (Negative); RBC,Urine 2 /hpf (0-5); Specific Gravity,Urine 1.025 (1.001-1.035); Squamous Epithelial Cell,Urine 1 /hpf (0-4); Urobilinogen,Urine <2.0 mg/dL (<2.0); WBC,Urine 4 /hpf (0-5)
--- NOTE | 2023-05-19 12:36 | CT ---
EXAMINATION TYPE: CT abdomen pelvis w con DATE OF EXAM: 05/19/2023 COMPARISON: 07/27/2013 HISTORY: 38-year-old female Left upper to mid abdominal pain, nausea and vomiting TECHNIQUE: Contiguous axial scanning of the abdomen and pelvis following administration of 100 ml Iso candelario 300 IV contrast. Delayed images through the kidneys and coronal/sagittal reconstructions perform ed. CT DLP: 870.2 mGycm Automated exposure control for dose reduction was used. FINDINGS: LUNG BASES: No significant abnormality appreciated. LIVER/GB: No significant abnormality is appreciated. PANCREAS: No significant abnormality is seen. SPLEEN: No significant abnormality is seen. ADRENALS: No significant abnormality is seen. KIDNEYS: No significant abnormality is seen. BOWEL: Prominent fluid-filled small bowel loops throughout the abdomen and pelvis. Liquid stool throu ghout the right hemicolon. [id number] stool left side of the colon. No pericolic inflammatory c hange seen. Normal appendix. LYMPH NODES: No significant abnormality is seen. OTHER: No significant abnormality is seen. PELVIS: Bladder is collapsed. Uterus retroverted. There is a 2.0 cm dominant follicle or functional c yst of the left ovary. Right ovary not clearly delineated from adjacent bowel loops. Mild cul-de-sac free fluid likely physiologic. BONES: At least mild degenerative change of the right hip. Redemonstrated left hip total arthroplasty . Bilateral L4 and L5 pars defects. Mild degenerative disc disease L5-S1. No malalignment. IMPRESSION: 1. PROMINENT FLUID-FILLED SMALL BOWEL LOOPS THROUGHOUT THE ABDOMEN AND PELVIS AND ADDITIONAL LIQUID S TOOL THROUGHOUT THE RIGHT HEMICOLON. CORRELATE FOR A NONSPECIFIC ENTERITIS. 2. A 2.0 CM DOMINANT FOLLICLE OR FUNCTIONAL CYST OF THE LEFT OVARY. MILD CUL-DE-SAC FREE FLUID LIKELY PHYSIOLOGIC. 3. BILATERAL L4 AND L5 PARS DEFECTS. NO SPONDYLOLISTHESIS.
[2023-05-19] MEDS ORDERED: METHYLNALTREXONE BROMIDE 12 MG/0.6 ML VIAL SQ ONE (13:00)
[2023-05-19 13:25] VITALS: BP 105/60; PULSE 100; TEMP 98
== END 2023-05-19 14:08 | disposition home or self-care (01) ==
LOC: EC 10:11
DX: K59.03 Drug induced constipation (principal); F17.200 Nicotine dependence, unspecified, uncomplicated; J45.909 Unspecified asthma, uncomplicated; F41.9 Anxiety disorder, unspecified; F32.A Depression, unspecified; F12.90 Cannabis use, unspecified, uncomplicated; Z79.899 Other long term (current) drug therapy; Z91.040 Latex allergy status; Z88.8 Allergy status to other drugs, medicaments and biological substances
CPT/HCPCS: 99284; 99406; 96374; 96375 ×2; 96376 ×2; 96361 ×2; 96372; 36415; 80053; 82150; 83605; 83690; 85025; 81001; 84703; 74177; J2405; J1885; J1170; Q9967; J2212

== ENCOUNTER → 2023-06-09 | Day surgery (SDC) | payer MEDICARE, OTHER ==
[2023-06-08 09:47] VITALS: BMI 31.2
[~2023-06-09] MED LIST: LIDOCAINE 1% (10MG/ML) FOR IV START INTRADERMA PRN; MIDAZOLAM 2 MG/2 ML VIAL ONE; PROPOFOL 10 MG/ML 20 ML VIAL IV ONE
[2023-06-09] MEDS: LACTATED RINGERS 1,000 ML IV SCH (09:59)
[2023-06-09 10:06] VITALS: RESP 16; TEMP 99.2
--- NOTE | 2023-06-09 10:39 | P.PCN ---
Date of Procedure: 06/09/23 Procedure(s) Performed: BRIEF HISTORY: Patient is a 38-year-old pleasant white female scheduled for an elective colonoscopy as a part of evaluation of chronic constipation of several months duration. PROCEDURE PERFORMED: Colonoscopy. PREOPERATIVE DIAGNOSIS: Chronic constipation. IV sedation per Anesthesia. PROCEDURE: After informed consent was obtained, the patient, was brought into the endoscopy unit. IV sedation was administered by Anesthesia under continuous monitoring. Digital rectal examination was normal. Initially the Olympus CF-160 flexible video colonoscope was then inserted in the rectum, gradually advanced into the cecum without any difficulty. Careful examination was performed as the scope was gradually being withdrawn. Ileocecal valve and the appendiceal orifice were visualized and appeared normal. Prep was excellent. Mucosa of the cecum, ascending colon, transverse colon, descending colon, sigmoid colon, and rectum appeared normal. Retroflexion was performed in the rectum and no lesions were seen. The patient tolerated the procedure well. IMPRESSION: Normal-appearing colon from rectum to cecum with no evidence of colorectal neoplasia. RECOMMENDATIONS: Findings of this examination were discussed with the patient as well as a family. She was advised to continue with her current medications and have a repeat screening colonoscopy in 10 years..
[2023-06-09 11:05] VITALS: BP 116/65; PULSE 94
== END | disposition home or self-care (01) ==
LOC: ORWHC2ENDO 09:12
PROVIDERS: ATTEND Internal Medicine Gastroenterology
DX: K59.09 Other constipation (principal); Z88.5 Allergy status to narcotic agent; Z88.1 Allergy status to other antibiotic agents; Z91.040 Latex allergy status; Z79.899 Other long term (current) drug therapy; F17.290 Nicotine dependence, other tobacco product, uncomplicated
CPT/HCPCS: 81025; 45378; J2250; J2704